=== PATIENT | female | born 1950 | race Caucasian/White ===

== ENCOUNTER → 2017-10-09 | Outpatient (CLI) | payer OTHER ==
[~2017-10-09] MED LIST: ACET325 PO; ALPR.25 PO; AMIT75 PO; ASPI325; ASPI325 PO; ASPI325EC PO; ASPI81CH PO; ASPI81EC PO; ATOR10 PO; ATOR20 PO; AZIT250 PO; Acephen650 MG PR; Antacid Maximu355 ML PO; BACL10 PO; BENTYL20 MG PO; BUSP15; Baclofen10 MG PO; Buspirone HCl7.5 MG PO; CARB100CH; CARB100CH PO; CEFD300 PO; CELE200 PO; CEPH500 PO; CHOL10002 PO; CIPR250 PO; CIPR500 PO; CLON.1 PO; CLON.2 PO; CLOP75 PO; CODACE30 PO; CRUTCH2 XX; CRUTCH4 USE; CYAN1000I IM; CYAN500 PO; CYCL10; CYCL10 PO; Cymbalta20 MG; DIAZ5; DIPATR PO; DIVA500ER PO; DOCU100 PO; DULO60 PO; Dazidox10 MG; ETOD400; Esgic Tablet1 EACH PO; FAMO20 PO; FAMO40 PO; FLUO10 PO; Flexeril5 MG PO; GABA100 PO; GABA300; GABA300 PO; HYDACE10B; HYDACE10B PO; HYDACE25S PR; HYDACE5; HYDACE5 PO; HYDACE5325 PO; HYDCHL12.5 PO; HYDHOMSY PO; HYDPAM25 PO; HYDPAM50 PO; HYDR1TAB94 PO; Hair, Skin & N1 EACH; Hair, Skin & N1 EACH PO; Hydroxyzine HCl50 MG; INDO25 PO; INDO50 PO; INDO50S PR; ISODIN10 PO; ISOMON20 PO; Imitrex100 MG PO; Isosorbide Mono30 MG PO; K-Dur10 MEQ PO; K-Dur20 MEQ PO; KETO10 PO; LAMO25 PO; LEVE500 PO; LEVFLO500 PO; LIDO5TP TOP; LISI5; LISI5 PO; LOPE2C PO; Lyrica50 MG PO; MELO7.5 PO; METO25 PO; METR500 PO; MORP20L SL; MULTI VIT; MULVITMIND PO; Macrobid 100 M100 MG PO; Metoprolol Succ25 MG PO; Multiple Vitam1 EAC1 PO; NABU500 PO; NITR.4SL SL; NITR.6SL; NITR.6SL SL; NORT25 PO; NUEDEXTA 20-101 EACH PO; NYST100TC TOP; NYSTRITC; Nitrostat0.4 MG SL; Norco 5-325 Ta1 EACH PO; OLAN10 PO; OLAN5 PO; OMEP20ER PO; ONDA4 PO; ONDA4ODT; ONDA4ODT MM; ONDA8 PO; ONDA8ODT MM; OXYACE10; OXYACE5T PO; OXYACE7.5T PO; OXYC1TAB11 PO; OXYC30 PO; OXYC5 PO; OXYCODONE; PHENY50CH PO; POTCHL20ER PO; PRAZ1 PO; PRED20 PO; PROC10 PO; PROC25S PR; PROM25 PO; Percocet 5-3251 EACH PO; Prilosec Otc20 MG PO; Prinivil10 MG PO; QUET25 PO; RANI150 PO; RXDIPATR PO; RXHYDMOR2 PO; RXONDA4ODT MM; RXOXYACE PO; RXTRAM50 PO; SENN187 PO; SERT50 PO; SUCR1 PO; SULTRIDS PO; SUMA25; SUMA25 PO; Synthroid25 MCG PO; TOPI25 PO; TRAM50 PO; TRIHYD253B PO; Tylophen500 MG PO; Ultram50 MG PO; VIT D; VITAMIN D31000 UNIT; VITAMINS; Zofran Odt4 MG PO; Zofran Odt4 MG SL; Zofran4 MG PO; [UNRECOGNIZED DRUG - REMARK]; [UNRECOGNIZED DRUG - REMARK]; [UNRECOGNIZED DRUG - REMARK]
[2017-10-09 18:58] LABS: Source, Urine Catheter
[2017-10-09 19:12] LABS: Appearance, Urine Clear (Clear); Bilirubin, Urine Neg (Neg); Blood, Urine 1+ (Neg); Color, Urine Yellow (P-Yellow); Glucose Qualitative, Urine Neg (Neg); Ketones, Urine 3+ (Neg); Leukocyte Esterase, Urine 1+ (Neg); Nitrite, Urine Pos (Neg); Protein, Urine Neg (Neg); Urobilinogen, Urine NORM (Normal)
[2017-10-09 20:18] LABS: Bacteria Many /hpf; Red Blood Cells, Urine 0-2 /hpf (0-2); Squamous Epithelial Cells Not Seen /hpf (Few); White Blood Cells, Urine 0-2 /hpf (0-5)
== END | disposition home or self-care (01) ==
LOC: LAB 14:50
PROVIDERS: Family Medicine
DX: N39.0 Urinary tract infection, site not specified (principal)
CPT/HCPCS: 81001; 87077; 87086; 87186

== ENCOUNTER → 2017-12-17 | Outpatient (CLI) | payer OTHER ==
[~2017-12-17] MED LIST changes: -Acephen650 MG PR; -Antacid Maximu355 ML PO; -DIVA500ER PO; -MORP20L SL; -NUEDEXTA 20-101 EACH PO; -OLAN10 PO; -OLAN5 PO; -PRAZ1 PO; -PROC25S PR
[2017-12-18 08:27] LABS: Bilirubin, Urine Neg (Neg); Blood, Urine 1+ (Neg); Glucose Qualitative, Urine Neg (Neg); Ketones, Urine 2+ (Neg); Leukocyte Esterase, Urine 2+ (Neg); Nitrite, Urine Pos (Neg); Protein, Urine 2+ (Neg); Urobilinogen, Urine NORM (Normal); pH, Urine 6.5 (5.0-8.0)
[2017-12-18 08:29] LABS: Appearance, Urine Clear (Clear); Color, Urine Yellow (P-Yellow)
[2017-12-18 08:36] LABS: Bacteria Many /hpf; White Blood Cells, Urine 25-50 /hpf (0-5)
[2017-12-18 08:37] LABS: Squamous Epithelial Cells Few /hpf (Few)
[2017-12-18 08:42] LABS: Hyaline Casts 0-2 /lpf (0-2)
== END | disposition home or self-care (01) ==
LOC: LAB SHORT 15:45 → LAB 15:45
PROVIDERS: Physician Assistant
DX: N39.0 Urinary tract infection, site not specified (principal)
CPT/HCPCS: 81001; 87077; 87086; 87186

== ENCOUNTER → 2018-01-15 | Outpatient (CLI) | payer OTHER ==
[2018-01-15 19:01] LABS: Source, Urine Catheter
[2018-01-15 19:09] LABS: Appearance, Urine Hazy (Clear); Bilirubin, Urine Neg (Neg); Blood, Urine 2+ (Neg); Color, Urine Yellow (P-Yellow); Glucose Qualitative, Urine Neg (Neg); Ketones, Urine Neg (Neg); Leukocyte Esterase, Urine 3+ (Neg); Nitrite, Urine Pos (Neg); Protein, Urine 1+ (Neg); Specific Gravity, Urine 1.015 (1.003-1.022); Urobilinogen, Urine NORM (Normal); pH, Urine 6.5 (5.0-8.0)
[2018-01-15 19:28] LABS: Bacteria Many /hpf; Squamous Epithelial Cells Many /hpf (Few); White Blood Cells, Urine 25-50 /hpf (0-5)
== END | disposition home or self-care (01) ==
LOC: LAB SHORT 13:30 → LAB 13:30
PROVIDERS: Physician Assistant
DX: N39.0 Urinary tract infection, site not specified (principal)
CPT/HCPCS: 81001; 87077; 87086; 87186

== ENCOUNTER 2018-02-04 13:08 | Emergency (ER) | payer OTHER ==
[~2018-02-04] VITALS: Ht 152.4 cm; Wt 63.5 kg
[2018-02-04] MEDS ORDERED: DIVA500ER PO (13:23)
[2018-02-04] MEDS ORDERED: OLAN5 PO (13:24)
[2018-02-04] MEDS ORDERED: NUEDEXTA 20-101 EACH PO (13:24)
[2018-02-04] MEDS ORDERED: PRAZ1 PO (13:25)
== END 2018-02-04 14:56 | disposition home or self-care (01) ==
LOC: ER 13:08
DX: T18.128A Food in esophagus causing other injury, initial encounter (principal); I10 Essential (primary) hypertension; F17.200 Nicotine dependence, unspecified, uncomplicated; Z91.09 Other allergy status, other than to drugs and biological substances; Z88.8 Allergy status to other drugs, medicaments and biological substances; Z79.899 Other long term (current) drug therapy; Z86.73 Personal history of transient ischemic attack (TIA), and cerebral infarction without residual deficits
CPT/HCPCS: 99283

== ENCOUNTER → 2018-02-05 | Outpatient (CLI) | payer OTHER ==
[~2018-02-05] MED LIST changes: +DIVA500ER PO; +NUEDEXTA 20-101 EACH PO; +OLAN5 PO; +PRAZ1 PO
[2018-02-05 19:18] LABS: Source, Urine Catheter
[2018-02-05 19:37] LABS: Bilirubin, Urine Neg (Neg); Blood, Urine Neg (Neg); Glucose Qualitative, Urine Neg (Neg); Ketones, Urine 1+ (Neg); Leukocyte Esterase, Urine 1+ (Neg); Nitrite, Urine Pos (Neg); Protein, Urine Neg (Neg); Urobilinogen, Urine NORM (Normal)
[2018-02-05 19:45] LABS: Appearance, Urine Clear (Clear); Color, Urine Yellow (P-Yellow)
[2018-02-05 19:47] LABS: Amorphous Heavy (0-Heavy); Bacteria Many /hpf; Red Blood Cells, Urine Not Seen /hpf (0-2); Squamous Epithelial Cells Not Seen /hpf (Few); White Blood Cells, Urine 0-2 /hpf (0-5)
== END | disposition home or self-care (01) ==
LOC: LAB SHORT 15:00 → LAB 15:00
PROVIDERS: Physician Assistant
DX: N39.0 Urinary tract infection, site not specified (principal)
CPT/HCPCS: 81001; 87077; 87086; 87186

== ENCOUNTER → 2018-04-30 | Outpatient (CLI) | payer OTHER ==
[2018-04-30 19:04] LABS: Source, Urine Catheter
[2018-04-30 19:21] LABS: Bilirubin, Urine Neg (Neg); Blood, Urine 1+ (Neg); Glucose Qualitative, Urine Neg (Neg); Ketones, Urine 1+ (Neg); Leukocyte Esterase, Urine 2+ (Neg); Nitrite, Urine Pos (Neg); Protein, Urine 1+ (Neg); Urobilinogen, Urine NORM (Normal)
[2018-04-30 19:32] LABS: Appearance, Urine Cloudy (Clear); Color, Urine Yellow (P-Yellow)
[2018-04-30 19:33] LABS: Bacteria Many /hpf; Squamous Epithelial Cells Few /hpf (Few); White Blood Cells, Urine 50-100 /hpf (0-5)
== END ==
LOC: LAB 16:00 → LAB SHORT 16:00
PROVIDERS: Physician Assistant
DX: N39.0 Urinary tract infection, site not specified (principal)
CPT/HCPCS: 81001; 87077; 87086; 87186

== ENCOUNTER 2018-06-02 06:38 | Inpatient (IN) | payer OTHER ==
[~2018-06-02] VITALS: Ht 160 cm; Wt 52.4 kg
[~2018-06-02 06:38] MED LIST changes: -NUEDEXTA 20-101 EACH PO
[2018-06-02] MEDS ORDERED: OLAN10 PO (06:52)
[2018-06-02] MEDS ORDERED: PROC25S PR (07:08)
[2018-06-02] MEDS ORDERED: PRAZ1 PO (07:08)
[2018-06-02] MEDS ORDERED: Antacid Maximu355 ML PO (07:09)
[2018-06-02] MEDS ORDERED: BACL10 PO (07:10)
[2018-06-02 07:11] LABS: BASOPHILS ABSOLUTE AUTO 0.03 K/mm3 (0.00-0.23); BASOPHILS PERCENT AUTO 0 % (0-2); EOSINOPHILS ABSOLUTE AUTO 0.05 K/mm3 (0.00-0.68); EOSINOPHILS PERCENT AUTO 1 % (0-6); Hemoglobin 13.2 g/dL (11.5-16.0); IMMATURE GRAN PERCENT AUTO 1 % (0-1); LYMPHOCYTES PERCENT AUTO 26 % (21-46); MONOCYTES ABSOLUTE AUTO 0.64 K/mm3 (0.16-1.47); MONOCYTES PERCENT AUTO 8 % (4-13); Mean Corpuscular HGB 31.7 pg (26.0-34.0); Mean Corpuscular HGB Conc 30.7 g/dL (31.5-36.5); Mean Platelet Volume 10.5 fL (9.1-12.4); NEUTROPHILS ABSOLUTE AUTO 4.95 K/mm3 (1.96-9.15); NEUTROPHILS PERCENT AUTO 64 % (41-73); Platelet Count 244 K/mm3 (150-400); RDW Coefficient Variation 13.3 % (11.7-14.2); RDW Standard Deviation 51.3 fL (35.1-46.3); Red Blood Cell Count 4.16 M/mm3 (3.80-5.20); White Blood Cell Count 7.77 K/mm3 (4.00-11.30)
[2018-06-02 07:25] LABS: Mean Corpuscular Volume 103 fL (80-100)
[2018-06-02 07:37] LABS: Troponin I 0.017 ng/mL (0.000-0.040)
[2018-06-02 07:44] LABS: Alanine Aminotransfer (ALT/SGP 31 U/L (12-78); Albumin, Blood 2.6 g/dL (3.4-5.0); Albumin/Globulin Ratio 0.7 (0.8-1.8); Alk Phos 82 U/L (50-136); Anion Gap 11 mmol/L (6-16); Aspartate Aminotrans (AST/SGOT 31 U/L (12-37); Bilirubin, Total 0.3 mg/dL (0.1-1.0); Blood Urea Nitrogen 42 mg/dL (8-24); Bun/Creatinine Ratio 57.1 (12.0-20.0); CO2, Blood 29 mmol/L (21-32); Calcium, Blood 9.3 mg/dL (8.5-10.1); Chloride, Blood 123 mmol/L (98-108); Creatinine, Blood 0.74 mg/dL (0.40-1.00); Globulin, Blood 3.9 g/dL (2.2-4.0); Glomerular Filtration Rate >60 (60-); Glucose, Blood 99 mg/dL (70-99); Potassium, Blood 3.1 mmol/L (3.5-5.5); Sodium, Blood 163 mmol/L (136-145); Total Protein, Blood 6.5 g/dL (6.4-8.2)
[2018-06-02] MEDS ORDERED: CYAN500 PO (10:47)
[2018-06-02] MEDS ORDERED: LOPE2C PO (11:00)
[2018-06-02 14:48] LABS: Anion Gap 10 mmol/L (6-16); Blood Urea Nitrogen 40 mg/dL (8-24); Bun/Creatinine Ratio 52.6 (12.0-20.0); CO2, Blood 27 mmol/L (21-32); Calcium, Blood 8.9 mg/dL (8.5-10.1); Chloride, Blood 126 mmol/L (98-108); Creatinine, Blood 0.76 mg/dL (0.40-1.00); Glomerular Filtration Rate >60 (60-); Glucose, Blood 119 mg/dL (70-99); Potassium, Blood 3.3 mmol/L (3.5-5.5); Sodium, Blood 163 mmol/L (136-145)
[2018-06-03 06:02] LABS: Hematocrit 36.1 % (33.0-51.0)
[2018-06-03 06:36] LABS: Albumin, Blood 2.1 g/dL (3.4-5.0); Anion Gap 7 mmol/L (6-16); Blood Urea Nitrogen 29 mg/dL (8-24); Bun/Creatinine Ratio 55.3 (12.0-20.0); CO2, Blood 25 mmol/L (21-32); Calcium, Blood 8.5 mg/dL (8.5-10.1); Chloride, Blood 127 mmol/L (98-108); Creatinine, Blood 0.52 mg/dL (0.40-1.00); Glomerular Filtration Rate >60 (60-); Glucose, Blood 122 mg/dL (70-99); Magnesium, Blood 2.3 mg/dL (1.6-2.4); Phosphorus, Blood 2.3 mg/dL (2.5-4.9); Potassium, Blood 3.7 mmol/L (3.5-5.5); Sodium, Blood 159 mmol/L (136-145); Uric Acid, Blood 4.3 mg/dL (2.6-6.0)
[2018-06-03 07:03] LABS: Osmolality, Serum 328 mos/KG (275-300)
[2018-06-04 04:50] LABS: Hematocrit 32.3 % (33.0-51.0)
[2018-06-04 05:09] LABS: Albumin, Blood 1.9 g/dL (3.4-5.0); Anion Gap 10 mmol/L (6-16); Blood Urea Nitrogen 11 mg/dL (8-24); CO2, Blood 24 mmol/L (21-32); Calcium, Blood 8.3 mg/dL (8.5-10.1); Chloride, Blood 116 mmol/L (98-108); Creatinine, Blood 0.52 mg/dL (0.40-1.00); Glomerular Filtration Rate >60 (60-); Glucose, Blood 101 mg/dL (70-99); Phosphorus, Blood 2.9 mg/dL (2.5-4.9); Potassium, Blood 3.1 mmol/L (3.5-5.5); Sodium, Blood 150 mmol/L (136-145)
[2018-06-04 15:30] LABS: Potassium, Blood 3.7 mmol/L (3.5-5.5)
[2018-06-05 05:16] LABS: Hemoglobin 10.5 g/dL (11.5-16.0)
[2018-06-05 05:28] LABS: Anion Gap 8 mmol/L (6-16); Blood Urea Nitrogen 3 mg/dL (8-24); Bun/Creatinine Ratio 6.7 (12.0-20.0); CO2, Blood 27 mmol/L (21-32); Calcium, Blood 8.4 mg/dL (8.5-10.1); Chloride, Blood 116 mmol/L (98-108); Creatinine, Blood 0.45 mg/dL (0.40-1.00); Glomerular Filtration Rate >60 (60-); Glucose, Blood 75 mg/dL (70-99); Magnesium, Blood 1.8 mg/dL (1.6-2.4); Phosphorus, Blood 2.6 mg/dL (2.5-4.9); Potassium, Blood 3.4 mmol/L (3.5-5.5); Sodium, Blood 151 mmol/L (136-145)
[2018-06-05 14:40] LABS: Potassium, Blood 4.1 mmol/L (3.5-5.5)
[2018-06-06 04:53] LABS: Hematocrit 36.4 % (33.0-51.0); Hemoglobin 11.6 g/dL (11.5-16.0)
[2018-06-06 05:12] LABS: Albumin, Blood 2.1 g/dL (3.4-5.0); Anion Gap 8 mmol/L (6-16); Blood Urea Nitrogen 3 mg/dL (8-24); Bun/Creatinine Ratio 6.6 (12.0-20.0); CO2, Blood 27 mmol/L (21-32); Calcium, Blood 8.4 mg/dL (8.5-10.1); Chloride, Blood 111 mmol/L (98-108); Creatinine, Blood 0.46 mg/dL (0.40-1.00); Glomerular Filtration Rate >60 (60-); Glucose, Blood 105 mg/dL (70-99); Magnesium, Blood 1.8 mg/dL (1.6-2.4); Phosphorus, Blood 2.8 mg/dL (2.5-4.9); Potassium, Blood 3.6 mmol/L (3.5-5.5); Sodium, Blood 146 mmol/L (136-145)
[2018-06-06 11:38] LABS: Valproic Acid 63.5 ug/mL (50.0-100.0)
[2018-06-06] MEDS ORDERED: NUEDEXTA 20-101 EACH PO (13:50)
== END 2018-06-06 15:09 | disposition home or self-care (01) | DRG 70 ==
LOC: ER 06:38 → MEDS 08:54 → ENPENDDIS 06-06 10:41 → MEDS 06-06 15:09
PROVIDERS: Emergency Medicine; Internal Medicine; Internal Medicine Nephrology
DX: G93.41 Metabolic encephalopathy (principal); J96.01 Acute respiratory failure with hypoxia; N17.9 Acute kidney failure, unspecified; E87.0 Hyperosmolality and hypernatremia; I69.354 Hemiplegia and hemiparesis following cerebral infarction affecting left non-dominant side; J44.1 Chronic obstructive pulmonary disease with (acute) exacerbation; J98.11 Atelectasis; Z51.5 Encounter for palliative care; G40.909 Epilepsy, unspecified, not intractable, without status epilepticus; Z85.038 Personal history of other malignant neoplasm of large intestine; I10 Essential (primary) hypertension; Z90.49 Acquired absence of other specified parts of digestive tract; M19.90 Unspecified osteoarthritis, unspecified site; R80.9 Proteinuria, unspecified; R31.29 Other microscopic hematuria; Z87.440 Personal history of urinary (tract) infections; I25.2 Old myocardial infarction; E87.6 Hypokalemia; I69.398 Other sequelae of cerebral infarction; F03.90 Unspecified dementia, unspecified severity, without behavioral disturbance, psychotic disturbance, mood disturbance, and anxiety; I12.9 Hypertensive chronic kidney disease with stage 1 through stage 4 chronic kidney disease, or unspecified chronic kidney disease; E88.09 Other disorders of plasma-protein metabolism, not elsewhere classified; E83.39 Other disorders of phosphorus metabolism; I95.9 Hypotension, unspecified; Z87.891 Personal history of nicotine dependence
CPT/HCPCS: 36415; 71046; 80048; 80053; 80069; 80164; 82533; 83735; 83880; 83930; 84132; 84145; 84295; 84443; 84484; 84550; 85014; 85018; 85025; 85379; 87493; 93005; 93010; 94640; 94760; 96365; 96367; 99285-25; J0456; J0696; J1650; J3480; J7030; J7050; J7060; J7070; J7120

== ENCOUNTER 2018-06-22 09:41 | Inpatient (IN) | payer OTHER ==
[~2018-06-22] VITALS: Ht 160 cm; Wt 43.3 kg
[~2018-06-22 09:41] MED LIST changes: +Antacid Maximu355 ML PO; +NUEDEXTA 20-101 EACH PO; +OLAN10 PO; +PROC25S PR
[2018-06-22 10:47] LABS: Source, Urine Catheter
[2018-06-22 10:49] LABS: Bilirubin, Urine Neg (Neg); Blood, Urine Neg (Neg); Glucose Qualitative, Urine Neg (Neg); Ketones, Urine 2+ (Neg); Leukocyte Esterase, Urine 1+ (Neg); Nitrite, Urine Neg (Neg); Protein, Urine 1+ (Neg); Urobilinogen, Urine 1+ (Normal)
[2018-06-22 10:54] LABS: BASOPHILS ABSOLUTE AUTO 0.01 K/mm3 (0.00-0.23); BASOPHILS PERCENT AUTO 0 % (0-2); EOSINOPHILS ABSOLUTE AUTO 0.05 K/mm3 (0.00-0.68); EOSINOPHILS PERCENT AUTO 1 % (0-6); Hematocrit 31.7 % (33.0-51.0); Hemoglobin 10.2 g/dL (11.5-16.0); IMMATURE GRAN ABSOLUTE AUTO 0.11 K/mm3 (0.00-0.10); IMMATURE GRAN PERCENT AUTO 2 % (0-1); LYMPHOCYTES ABSOLUTE AUTO 1.81 K/mm3 (0.84-5.20); LYMPHOCYTES PERCENT AUTO 29 % (21-46); MONOCYTES PERCENT AUTO 11 % (4-13); Mean Corpuscular HGB 31.4 pg (26.0-34.0); Mean Corpuscular HGB Conc 32.2 g/dL (31.5-36.5); Mean Corpuscular Volume 98 fL (80-100); Mean Platelet Volume 9.9 fL (9.1-12.4); NEUTROPHILS ABSOLUTE AUTO 3.47 K/mm3 (1.96-9.15); NEUTROPHILS PERCENT AUTO 56 % (41-73); Platelet Count 182 K/mm3 (150-400); RDW Coefficient Variation 13.1 % (11.7-14.2); RDW Standard Deviation 47.3 fL (35.1-46.3); Red Blood Cell Count 3.25 M/mm3 (3.80-5.20); White Blood Cell Count 6.15 K/mm3 (4.00-11.30)
[2018-06-22 10:56] LABS: Appearance, Urine Hazy (Clear); Color, Urine Yellow (P-Yellow)
[2018-06-22 10:57] LABS: Bacteria Few /hpf; Red Blood Cells, Urine 0-2 /hpf (0-2); Squamous Epithelial Cells Rare /hpf (Few)
[2018-06-22 11:16] LABS: Alanine Aminotransfer (ALT/SGP 15 U/L (12-78); Albumin, Blood 1.9 g/dL (3.4-5.0); Albumin/Globulin Ratio 0.5 (0.8-1.8); Alk Phos 70 U/L (50-136); Anion Gap 6 mmol/L (6-16); Aspartate Aminotrans (AST/SGOT 26 U/L (12-37); Bilirubin, Total 0.2 mg/dL (0.1-1.0); Blood Urea Nitrogen 20 mg/dL (8-24); Bun/Creatinine Ratio 38.5 (12.0-20.0); CO2, Blood 30 mmol/L (21-32); Chloride, Blood 109 mmol/L (98-108); Creatinine, Blood 0.52 mg/dL (0.40-1.00); Globulin, Blood 3.6 g/dL (2.2-4.0); Glomerular Filtration Rate >60 (60-); Glucose, Blood 72 mg/dL (70-99); Potassium, Blood 3.2 mmol/L (3.5-5.5); Sodium, Blood 145 mmol/L (136-145); Total Protein, Blood 5.5 g/dL (6.4-8.2); Valproic Acid 90.1 ug/mL (50.0-100.0)
[2018-06-22 14:05] LABS: Bicarbonate Venous 29.6 mmol/L (24.0-30.0); PCO2 Venous 46.8 mmHg (38-42); PO2 Venous 49.7 mmHg (38-42); pH Blood Venous 7.43 (7.34-7.37)
[2018-06-23 05:11] LABS: Hemoglobin 10.8 g/dL (11.5-16.0); Mean Corpuscular HGB 30.6 pg (26.0-34.0); Mean Corpuscular HGB Conc 31.8 g/dL (31.5-36.5); Mean Corpuscular Volume 96 fL (80-100); Platelet Count 180 K/mm3 (150-400); RDW Coefficient Variation 13.1 % (11.7-14.2); RDW Standard Deviation 46.5 fL (35.1-46.3); Red Blood Cell Count 3.53 M/mm3 (3.80-5.20); White Blood Cell Count 4.22 K/mm3 (4.00-11.30)
[2018-06-23 05:38] LABS: BAND PERCENT MAN 1 % (0-8); BASOPHILS PERCENT MAN 0 % (0-2); EOSINOPHILS PERCENT MAN 0 % (0-6); LYMPHOCYTES ABSOLUTE MAN 1.01 K/mm3 (0.84-5.20); LYMPHOCYTES PERCENT MAN 24 % (21-46); MONOCYTES ABSOLUTE MAN 0.21 K/mm3 (0.16-1.47); MONOCYTES PERCENT MAN 5 % (4-13); MYELOCYTE ABSOLUTE MAN 0.08 K/mm3 (0.00-0.00); MYELOCYTE PERCENT MAN 2 % (0-0); NEUTROPHILS ABSOLUTE MAN 2.91 K/mm3 (1.96-9.15); SEG NEUTROPHILS PERCENT MAN 68 % (41-73); TOTAL CELLS COUNTED 100
[2018-06-23 05:39] LABS: Alanine Aminotransfer (ALT/SGP 16 U/L (12-78); Albumin, Blood 1.9 g/dL (3.4-5.0); Albumin/Globulin Ratio 0.5 (0.8-1.8); Alk Phos 106 U/L (50-136); Anion Gap 8 mmol/L (6-16); Aspartate Aminotrans (AST/SGOT 21 U/L (12-37); Bilirubin, Total 0.3 mg/dL (0.1-1.0); Blood Urea Nitrogen 26 mg/dL (8-24); Bun/Creatinine Ratio 53.4 (12.0-20.0); CO2, Blood 28 mmol/L (21-32); Chloride, Blood 109 mmol/L (98-108); Creatinine, Blood 0.49 mg/dL (0.40-1.00); Globulin, Blood 3.6 g/dL (2.2-4.0); Glomerular Filtration Rate >60 (60-); Glucose, Blood 101 mg/dL (70-99); Potassium, Blood 3.8 mmol/L (3.5-5.5); Sodium, Blood 145 mmol/L (136-145); Total Protein, Blood 5.5 g/dL (6.4-8.2)
[2018-06-25] MEDS ORDERED: MORP20L SL (11:12)
[2018-06-25] MEDS ORDERED: Acephen650 MG PR (11:13)
== END 2018-06-25 12:56 | disposition home or self-care (01) | DRG 55 ==
LOC: ER 09:41 → MEDS 13:19 → ENPENDDIS 06-25 09:32 → MEDS 06-25 12:56
PROVIDERS: Internal Medicine
DX: C71.9 Malignant neoplasm of brain, unspecified (principal); E87.1 Hypo-osmolality and hyponatremia; F03.90 Unspecified dementia, unspecified severity, without behavioral disturbance, psychotic disturbance, mood disturbance, and anxiety; G40.909 Epilepsy, unspecified, not intractable, without status epilepticus; I95.9 Hypotension, unspecified; E03.9 Hypothyroidism, unspecified; Z86.73 Personal history of transient ischemic attack (TIA), and cerebral infarction without residual deficits; Z85.038 Personal history of other malignant neoplasm of large intestine
CPT/HCPCS: 36415; 70450; 71045; 80053; 80164; 81001; 82803; 84145; 85025; 87077; 87086; 87186; 96361; 96374; 99285-25; J1100; J1953; J7050; J7120; P9612